=== PATIENT | female | born 1980 | race Hispanic/Latino ===

== ENCOUNTER 2020-03-29 16:48 | Emergency (ER) | payer BC ==
[~2020-03-29] VITALS: Ht 160 cm; Wt 72.6 kg
[2020-03-29] MEDS ORDERED: SODIUM CHLORIDE 0.9% 1000ML 1,000 ML IV STA (17:08)
[2020-03-29 17:27] LABS: BASOPHILS # (AUTO) 0.1 (0.0-0.1); BASOPHILS % 0.6 % (0.0-1.0); EOSINOPHILS # (AUTO) 0.1 (0.0-0.4); EOSINOPHILS % 0.8 % (0.0-6.0); HEMATOCRIT 43.8 % (34.2-44.1); HEMOGLOBIN 14.3 g/dL (12.0-16.0); LYMPHOCYTES # (AUTO) 3.1 (1.0-3.2); LYMPHOCYTES % 19.1 % (18.0-39.1); MEAN CORPUSCULAR HEMOGLOBIN 27.7 pg (28-32); MEAN CORPUSCULAR HGB CONC 32.6 g/dL (31-35); MEAN CORPUSCULAR VOLUME 84.7 fL (81-99); MONOCYTES # (AUTO) 0.9 (0.2-0.8); MONOCYTES % 5.5 % (4.4-11.3); NEUTROPHILS % 73.6 % (38.7-80.0); PLATELET COUNT 531 x10e3/uL (140-360); RED BLOOD COUNT 5.17 x10e6/uL (3.6-5.1); RED CELL DISTRIBUTION WIDTH 14.1 % (11.7-14.4)
--- NOTE | 2020-03-29 17:39 | Emergency Department Note ---
History of Present Illnes History of Present Illness Chief Complaint: Respiratory History of Present Illness This is a 40 year old female PT WAS LYING IN BED ONE HR SHED BOSS AND SUDDEN ONSET OF SOB AND FEELING HEART POUNDING. AAOX4. AMBULATORY. COVID POSITIVE THREE WKS AGO, HAD NEGATIVE SWAB 1 WEEK AGO. TAKING MUCINEX. +DRINKS COFFEE. Historian: Patient Arrival Mode: Car [employer] Operations Manager Required: No Onset (how long ago): minute(s) (60) Location: HEART PALPITATIONS Quality: RACING Radiation: Reports non-radiation Severity: moderate Onset quality: sudden Timing of current episode: constant Chronicity: new Context: Reports recent illness (+COVID) Relieving factors: none Exacerbating factors: none Associated symptoms: Reports denies other symptoms, Reports shortness of breath; Denies cough, Denies fever/chills (PAMELA HENDERSON MD) Past Medical/Family History Physician Review I have reviewed the patient's past medical and family history. Any updates have been documented here. (PAMELA HENDERSON MD) Past Medical History Recent Fever: No Clinical Suspicion of Infectio: No New/Unexplained Change in Ment: No Past Medical History: None Past Surgical History: None (PAMELA HENDERSON MD) Social History Smoking Cessation: Never Smoker Counseling Performed: No Alcohol Use: Occasional Any Illegal Drug Use: No TB Exposure/Symptoms: No Physically hurt or threatened: No (PAMELA HENDERSON MD) Family History Family history of heart diseas: No (PAMELA HENDERSON MD) Other Any Pre-Existing Lines (PICC,: No (PAMELA HENDERSON MD) Review of Systems Review of Systems Constitutional: Reports no symptoms EENTM: Reports no symptoms Cardiovascular: Reports as per HPI Respiratory: Reports dyspnea Gastrointestinal: Reports no symptoms Genitourinary: Reports no symptoms Musculoskeletal: Reports no symptoms Integumentary: Reports no symptoms Neurological: Reports no symptoms Psychological: Reports no symptoms Endocrine: Reports no symptoms Hematological/Lymphatic: Reports no symptoms (PAMELA HENDERSON MD) Physical Exam Related Data Allergies: Coded Allergies: No Known Allergies (Unverified , 03/29/20) Triage Vital Signs Vital Signs Date Time Temp Pulse Resp B/P (MAP) Pulse Ox O2 Delivery O2 Flow Rate FiO2 03/29/20 16:51 99.4 136 16 144/99 100 Room Air Vital signs reviewed: Yes (PAMELA HENDERSON MD) Physical Exam CONSTITUTIONAL Constitutional: Present well-developed, Present well-nourished HENT HENT: Present normocephalic, Present atraumatic, Present oropharynx clear/moist, Present nose normal HENT L/R: Present left ext ear normal, Present right ext ear normal EYES Eyes: Reports PERRL, Reports conjunctivae normal NECK Neck: Present ROM normal PULMONARY Pulmonary: Present effort normal, Present breath sounds normal CARDIOVASCULAR Cardiovascular: Present regular rhythm, Present heart sounds normal, Present tachycardia; Absent murmur GASTROINTESTINAL Abdominal: Present soft, Present nontender, Present bowel sounds normal GENITOURINARY Genitourinary: Present exam deferred SKIN Skin: Present warm, Present dry MUSCULOSKELETAL Musculoskeletal: Present ROM normal NEUROLOGICAL Neurological: Present alert, Present oriented x 3, Present no gross motor or sensory deficits PSYCHOLOGICAL Psychological: Present mood/affect normal, Present judgement normal (PAMELA HENDERSON MD) Results Laboratory Result Diagram: 03/29/20 1700 Laboratory Laboratory Tests Test 03/29/20 17:00 White Blood Count 16.27 x10e3/uL (4.8-10.8) Red Blood Count 5.17 x10e6/uL (3.6-5.1) Hemoglobin 14.3 g/dL (12.0-16.0) Hematocrit 43.8 % (34.2-44.1) Mean Corpuscular Volume 84.7 fL (81-99) Mean Corpuscular Hemoglobin 27.7 pg (28-32) Mean Corpuscular Hemoglobin Concent 32.6 g/dL (31-35) Red Cell Distribution Width 14.1 % (11.7-14.4) Platelet Count 531 x10e3/uL (140-360) Neutrophils (%) (Auto) 73.6 % (38.7-80.0) Lymphocytes (%) (Auto) 19.1 % (18.0-39.1) Monocytes (%) (Auto) 5.5 % (4.4-11.3) Eosinophils (%) (Auto) 0.8 % (0.0-6.0) Basophils (%) (Auto) 0.6 % (0.0-1.0) Neutrophils # (Auto) 12.0 (2.1-6.9) Lymphocytes # (Auto) 3.1 (1.0-3.2) Monocytes # (Auto) 0.9 (0.2-0.8) Eosinophils # (Auto) 0.1 (0.0-0.4) Basophils # (Auto) 0.1 (0.0-0.1) Absolute Immature Granulocyte (auto 0.07 x10e3/uL (0-0.1) Lab results reviewed: Yes (PAMELA HENDERSON MD) Imaging Imaging results reviewed: Yes (PAMLEA HENDERSON MD) Procedures 12 Lead ECG Interpretation ECG Interpretation : ECG: ECG 1 [employer] Operations Manager: Interpreted by ED physician Date: Mar 29, 2020 Time: 16:58 Rhythm: sinus tachycardia Rate: tachycardia (134) QRS axis: left ST segments normal: Yes T waves normal: Yes Other findings: LVH Clinical Impression: abnormal ECG (PAMELA HENDERSON MD) Assessment & Plan Medical Decision Making MDM RECENT COVID POSITIVE 3 WKS AGO, THEN NEGATIVE 1 WEEK AGO. SUDDEN ONSET OF PALPITATIONS/SOB 1 HR SHED BOSS - CBC, CHEM'S, TSH, CARDIAC ENZYMES, ECG, CT CHEST - R/O LEUKOCYTOSIS, ELECTROLYTE ABNL, HYPERTHYROID, STEMI/NSTEMI, AFIB, SVT, R/O PULMONARY EMBOLISM, PERICARDIAL EFFUSION, PNEUMONIA (PAMELA HENDERSON MD) MDM Sign out obtained from Dr. Henderson to f/u CT Chest- CT chest unremarkable for pulmonary embolus or Covid related findings. Patient's symptoms may be related to her recent use of beta agonist. Patient's heart rate improved, patient informed of all lab work and imaging and she was stable for discharge home. (ANY ALLEN DO) Assessment & Plan Final Impression: (1) Tachycardia, paroxysmal (ANY ALLEN DO) Depart Disposition: HOME, SELF-CARE Last Vital Signs Date Time Temp Pulse Resp B/P (MAP) Pulse Ox O2 Delivery O2 Flow Rate FiO2 03/29/20 16:51 99.4 136 16 144/99 100 Room Air (PAMELA HENDERSON MD) Medications in the ED Sodium Chloride 1,000 ml @ 0 mls/hr Q0M STAT IV ; Start 03/29/20 at 17:08; Stop 03/29/20 at 17:11; Status DC (PAMELA HENDERSON MD) PAMELA HENDERSON MD Mar 29, 2020 17:39 ANY ALLEN DO Mar 29, 2020 21:09
[2020-03-29 17:49] LABS: CLARITY,URINE HAZY (CLEAR); COLOR,URINE YELLOW (YELLOW)
[2020-03-29 17:50] LABS: BILIRUBIN,URINE NEGATIVE (NEGATIVE); KETONES,URINE NEGATIVE (NEGATIVE); LEUKOCYTE ESTERASE ,URINE NEGATIVE (NEGATIVE); NITRITE,URINE NEGATIVE (NEGATIVE); PROTEIN,URINE DIPSTICK NEGATIVE (NEGATIVE); URINE UROBILINOGEN 0.2 mg/dL (0.2 - 1); WBC,URINE (MAN) 0-5 /HPF (0-5)
[2020-03-29 17:51] LABS: BACTERIA,URINE FEW /HPF; EPITHELIAL CELLS,URINE FEW /LPF; PHENCYCLIDINE SCREEN,URINE NEGATIVE (NEGATIVE); PREGNANCY TEST, URINE NEGATIVE (NEGATIVE); RBC,URINE 0-5 /HPF (0-5)
[2020-03-29 17:52] LABS: AMPHETAMINES SCREEN,URINE NEGATIVE (NEGATIVE); BENZODIAZEPINES SCREEN,URINE NEGATIVE (NEGATIVE)
[2020-03-29 18:03] LABS: INR 0.93; PARTIAL THROMBOPLASTIN TIME 30.7 seconds (23.8-35.5); PROTHROMBIN TIME 12.9 seconds (11.9-14.5)
[2020-03-29 18:06] LABS: THYROID STIMULATING HORMONE 1.945 uIU/mL (0.350-4.940)
[2020-03-29 18:10] LABS: ALANINE AMINOTRANSFERASE 22 IU/L (0-55); ALBUMIN 4.6 g/dL (3.5-5.0); ALBUMIN/GLOBULIN RATIO 1.1 (0.8-2.0); ALKALINE PHOSPHATASE 82 IU/L (40-150); ANION GAP 15.7 mmol/L (8-16); BLOOD UREA NITROGEN 7 mg/dL (7-26); BUN/CREATININE RATIO 7 (6-25); CALCIUM 10.1 mg/dL (8.4-10.2); CARBON DIOXIDE 20 mmol/L (22-29); CHLORIDE 107 mmol/L (98-107); CREATINE KINASE 77 IU/L (29-168); CREATININE, SERUM 0.95 mg/dL (0.57-1.11); EST GLOMERULAR FILTRATION RATE > 60 ML/MIN (60-); GLUCOSE 99 mg/dL (74-118); MAGNESIUM 1.7 MG/DL (1.3-2.1); POTASSIUM 3.7 mmol/L (3.5-5.1); SODIUM 139 mmol/L (136-145)
[2020-03-29] MEDS ORDERED: SODIUM CHLORIDE 0.9% 50ML 50 ML ONE (19:11)
[2020-03-29] MEDS ORDERED: IOPAMIDOL 370 MG/ML 200 ML INFUS..BTL INJ ONE (19:11)
--- NOTE | 2020-03-29 19:54 | Diagnostic Imaging Report ---
EXAM: CT Chest WITH contrast (PE protocol) 03/29/2020 6:30 PM INDICATION: Short of breath COMPARISON: None TECHNIQUE: Chest was scanned utilizing a multidetector helical scanner from the lung apex through the level of the diaphragm after administration of IV contrast. Thin section reconstructions were obtained with special concentration on the pulmonary arteries. Coronal and sagittal reformations were obtained. Pulmonary embolism protocol was performed. IV CONTRAST: 100 mL of Isovue 370 COMPLICATIONS: None RADIATION DOSE: Total DLP: 449 mGy*cm Estimated effective dose: (DLP x 0.014 x size factor) mSv CTDIvol has been reviewed. It is below the limits set by the Radiation Protocol Committee (RPC). Dose modulation, iterative reconstruction, and/or weight based adjustment of the mA/kV was utilized to reduce the radiation dose to as low as reasonably achievable. FINDINGS: LINES/ TUBES: None. LUNGS AND AIRWAYS: No pulmonary arterial filling defect. The lungs are unremarkable. Airways are normal. PLEURA: The pleural spaces are clear. HEART AND MEDIASTINUM: The thyroid gland is normal. No mediastinal, hilar or axillary lymphadenopathy. The heart is normal in size. There is no pericardial effusion. Main pulmonary artery and aorta are normal in diameter. UPPER ABDOMEN: Unremarkable. BONES: There are degenerative changes in the spine. SOFT TISSUES: Unremarkable. IMPRESSION: No pulmonary embolus. No acute CT thoracic abnormality. Signed by: Alex Wise DO on 03/29/2020 7:51 PM
[2020-03-29 20:53] VITALS: BP 122/84
--- NOTE | 2020-03-29 21:00 | NUR ---
Discharge instructions explained to patient, pt given extensive education. Pt requesting antibiotics for DC for elevated WBC on DC paperwork. Dr. Rosa notified. No intervention given.
== END 2020-03-29 21:00 | disposition home or self-care (01) ==
LOC: ER 17:48
DX: R00.2 Palpitations (principal); R00.0 Tachycardia, unspecified; R50.9 Fever, unspecified
CPT/HCPCS: 36415; 71260; 80053; 80307; 81001; 81025; 82550; 82553; 83735; 84443; 84484; 84702; 85025; 85379; 85610; 85730; 87086; 93005; 99284; J7030; Q9967